=== PATIENT | female | born 2000 | race Caucasian/White ===

== ENCOUNTER 2022-03-11 19:34 | Emergency (ER) | payer MEDICAID ==
[2022-03-11] MEDS ORDERED: Ketorolac 15 MG/ML SDV IM ONE (22:51)
== END 2022-03-11 23:56 | disposition home or self-care (01) ==
LOC: JD.ED 19:34
DX: S63.502A Unspecified sprain of left wrist, initial encounter (principal); X50.0XXA Overexertion from strenuous movement or load, initial encounter
CPT/HCPCS: 73110; 81025; 96372; 99283; J1885; 99282

== ENCOUNTER 2022-03-20 06:35 | Emergency (ER) | payer SELFPAY ==
[2022-03-20] MEDS ORDERED: Dextrose 5%-0.9% NaCl 1,000 ML IV SCH (07:30)
[2022-03-20 08:15] LABS: HEMOGLOBIN A1C 4.8 %
[2022-03-20] MEDS ORDERED: Aluminum Hydroxide/Magnesium Hydroxide/Simethicone Susp 30 ML Cup PO ONE (08:19)
[2022-03-20] MEDS ORDERED: Ondansetron 4 MG/2 ML SDV IVPUSH ONE (08:20)
[2022-03-20] MEDS ORDERED: cefTRIAXone 1 GM in Sodium Chloride 0.9% 100 ML IV ONE (09:34)
[2022-03-20] MEDS ORDERED: Acetaminophen 325 MG Tab PO ONE (09:47)
== END 2022-03-20 11:05 | disposition home or self-care (01) ==
LOC: JD.ED 06:35
DX: N39.0 Urinary tract infection, site not specified (principal); E03.9 Hypothyroidism, unspecified; E10.9 Type 1 diabetes mellitus without complications
CPT/HCPCS: 36415; 80053; 81001; 82009; 82947; 83036; 83930; 84443; 84703; 85025; 86140; 87086; 96361; 96365; 96375; 99284; A9270; J0696; J2405; J7042

== ENCOUNTER 2022-07-17 22:10 | Emergency (ER) | payer MEDICAID, OTHER | END 2022-07-18 02:36 | disposition home or self-care (01) | LOC: JD.ED 22:10 | DX: O03.9 Complete or unspecified spontaneous abortion without complication (principal); E03.9 Hypothyroidism, unspecified; Z79.899 Other long term (current) drug therapy | CPT/HCPCS: 36415; 76817; 76817-26; 84702; 85025; 86900; 86901; 99284 ==